=== PATIENT | female | born 1950 | race Caucasian/White ===

== ENCOUNTER → 2016-08-20 | Outpatient (CLI) | payer OTHER ==
[2015-09-18 10:24] VITALS: BP 150/86
[2016-08-20 12:36] LABS: BASOPHILS % (AUTO) 0.8 % (0.2-1.0); EOSINOPHILS # (AUTO) 0.1 x10^3/uL (0.0-0.2); EOSINOPHILS % (AUTO) 1.7 % (0.9-2.9); HEMATOCRIT 36.8 % (36.0-47.0); HEMOGLOBIN 12.4 g/dL (12.0-16.0); LYMPHOCYTES % (AUTO) 38.7 % (21.0-51.0); MEAN CORPUSCULAR HEMOGLOBIN 30.2 pg (27.0-34.0); MEAN CORPUSCULAR HGB CONC 33.5 g/dL (33.0-35.0); MEAN PLATELET VOLUME 7.5 fL (7.4-11.0); MONOCYTES # (AUTO) 0.5 x10^3/uL (0.3-0.8); MONOCYTES % (AUTO) 9.2 % (0.0-13.0); NEUTROPHILS # (AUTO) 2.5 x10^3/uL (2.2-4.8); NEUTROPHILS % (AUTO) 49.6 % (42.0-75.0); PLATELET COUNT 202 X10^3/uL (150.0-450.0); RED BLOOD COUNT 4.09 X10^6/uL (3.5-5.4); RED CELL DISTRIBUTION WIDTH 13.6 % (11.6-16.5); WHITE BLOOD COUNT 5.1 X10^3/uL (3.6-10.0)
[2016-08-20 12:50] LABS: B-TYPE NATRIURETIC PEPTIDE 32.3 pg/mL (0-79)
[2016-08-20 12:52] LABS: ALANINE AMINOTRANSFERASE 29 Units/L (12-78); ALBUMIN 3.8 g/dL (3.4-5.0); ALKALINE PHOSPHATASE 77 Units/L (46-116); ASPARTATE AMINO TRANSFERASE 29 Units/L (15-37); BLOOD UREA NITROGEN 13 mg/dL (7-18); CARBON DIOXIDE 30.6 mmol/L (21-32); CHLORIDE 104 mmol/L (98-107); CREATININE 0.87 mg/dL (0.55-1.02); GLUCOSE 99 mg/dL (65-99); SODIUM 143 mmol/L (136-145); TOTAL PROTEIN 7.7 g/dL (6.4-8.2); TROPONIN I < 0.02 ng/mL (0-1.5); eGFR BLACK RACES > 60 (>60); eGFR NON BLACK RACES > 60 (>60)
[2016-08-20 13:07] LABS: D DIMER 728 ng/mL (0-400)
[2016-08-20 13:38] LABS: ERYTHROCYTE SEDIMENTATION RATE 22 MM/HOUR (0-20)
--- NOTE | 2016-08-20 14:29 | RAD ---
HISTORY: Chest pain Study: PA and lateral Comparison: 06/12/2013 Findings: The trachea is midline. The cardiac silhouette is unremarkable. The pulmonary vessels are normal. The lungs are mildly hyperinflated but clear. There is a left pacemaker and bipolar leads in place w hich are unchanged. No consolidation or effusion is seen and the bones are intact. IMPRESSION: Stable chest with no acute abnormality seen. Reported By:
[2016-08-25 06:23] LABS: ANTI-NUCLEAR ANTIBODY TEST None Detected (None Detected)
== END ==
LOC: LAB 11:17
PROVIDERS: ATTEND Nurse Practitioner Family
DX: R06.02 Shortness of breath (principal); R07.89 Other chest pain; M54.5 Low back pain
CPT/HCPCS: 36415; 71020; 80053; 82550; 82552; 83880; 84484; 85025; 85378; 85652; 86141; 86200; 86308

== ENCOUNTER → 2016-08-26 | Outpatient (CLI) | payer OTHER ==
[2015-09-18 10:24] VITALS: BP 150/86
[~2016-08-26] MED LIST: NS 100 ML IV 100 ML IV ONE
--- NOTE | 2016-08-26 13:37 | CT ---
History: Elevated D-dimer Study: CTA chest with contrast. Sagittal and coronal MIPS of the pulmonary arteries were displayed. Comparison: None Findings: The lungs are hyperinflated and are clear. There is no pleural effusion. The gallbladder i s surgically absent. There is a tiny hiatal hernia. There is no mediastinal or hilar adenopathy. No pulmonary embolus is demonstrated. There are adjacent low a attenuation rounded lesions in the late ral segment of the left lobe of the liver measuring up to 1.8 centimeters diameter. This probably co rresponds to the hemangiomas demonstrated by ultrasound examination of December 2015. Impression: 1. No evidence for pulmonary embolus 2. Hyperinflation, COPD. Reported By:
== END | disposition home or self-care (01) ==
LOC: RAD 11:24
PROVIDERS: ATTEND Nurse Practitioner Family
DX: R79.1 Abnormal coagulation profile (principal); R06.02 Shortness of breath
CPT/HCPCS: 71275; A4222

== ENCOUNTER → 2017-05-06 | Outpatient (CLI) | payer OTHER ==
[2015-09-18 10:24] VITALS: BP 150/86
[2017-05-06 10:31] LABS: CHOL/HDL RATIO 2.4 (0.0-5.0)
--- NOTE | 2017-05-06 12:03 | RAD ---
Examination: Cervical spine, 6 views History: Pain in shoulder Findings: There are surgical fixation hardware devices At C4-C7. Interbody fusion appears complete. A lignment is anatomic. No fracture or bone destruction is noted. There is mild osteophyte narrowing of the C6-7 neural foramina. The C1-2 complex is intact and symmetric. Impression: No acute process. Status post ACDF C4-C7. Degenerative neural foramen narrowing C6-7 bila terally. Reported By:
--- NOTE | 2017-05-06 12:06 | RAD ---
Examination: Lumbar spine, five views History: Shoulder pain Findings: There is an S shaped biphasic lumbosacral scoliosis. Left-sided pedicle screws and connecti ng josephine identified at L5-S1. Intra discal graft is present at L5-S1. There is narrowing of the L4-5 in terspace with suggestion of anterior listhesis at L5-S1. Degenerative disc narrowing and slight retro listhesis present at L1-2. Impression: 1. Unilateral/left L5-S1 PLIF and interbody fusion. 2. Moderately severe lumbosacral scoliosis. 3. Degenerative disc disease L1-2, L4-5. Anterior listhesis L5-S1. Reported By:
--- NOTE | 2017-05-06 12:07 | RAD ---
Examination: Thoracic spine, AP and lateral views History: Pain in shoulders Findings: There is no evidence for thoracic spine fracture, pedicle destruction, subluxation or mag miguel a mass. Small marginal osteophytes are present consistent with age. Impression: Mild thoracic spondylosis. No acute process identified. Reported By:
== END | disposition home or self-care (01) ==
LOC: LAB 09:54
PROVIDERS: ATTEND Nurse Practitioner Family
DX: E78.4 Other hyperlipidemia (principal); I10 Essential (primary) hypertension; Z79.899 Other long term (current) drug therapy; M47.894 Other spondylosis, thoracic region; M41.87 Other forms of scoliosis, lumbosacral region; M51.36 Other intervertebral disc degeneration, lumbar region; M51.37 Other intervertebral disc degeneration, lumbosacral region; Z98.1 Arthrodesis status
CPT/HCPCS: 36415; 72050; 72072; 72110; 80061; 84450; 84460

== ENCOUNTER → 2017-06-13 | Outpatient (CLI) | payer OTHER ==
[2015-09-18 10:24] VITALS: BP 150/86
--- NOTE | 2017-06-14 09:02 | CT ---
HISTORY: Neck pain and cervical disc disease. Study: CT cervical spine without contrast Comparison: CT cervical spine dated June 15, 2016. Technique: Multiple axial images of the cervical spine were obtained from the skull base to the thora cic inlet without administration of IV contrast. Sagittal and coronal reformats were performed and r eviewed. Dose reduction techniques including Automated Exposure Control (AEC) and adjustment of mA an d kV were utilized. Findings: Patient is status post anterior cervical fusion at C4 through C7 with associated hardware and disc sp acers. The hardware appears intact and unchanged. No acute fracture or listhesis. Multilevel mild-to- moderate degenerative changes are seen of the other levels. No significant neural foraminal narrowing or spinal canal stenosis. 2.0 cm left thyroid lobe nodule appears unchanged given technique. Biapica l scarring. IMPRESSION: 1. No significant change in the cervical spine. 2. 2.0 cm left thyroid lobe nodule appears unchanged given technique. Recommend dedicated thyroid ult rasound if not already obtained. Reported By:
== END ==
LOC: RAD 14:18
PROVIDERS: ATTEND Neurological Surgery
DX: M47.22 Other spondylosis with radiculopathy, cervical region (principal)
CPT/HCPCS: 72125